=== PATIENT | male | born 2000 | race Hispanic/Latino ===

== ENCOUNTER 2020-06-09 18:42 | Emergency (ER) | payer SELFPAY ==
[2020-06-09 19:03] VITALS: BP 130/104; PULSE 81; RESP 16; TEMP 37.2; O2SAT 100
--- NOTE | 2020-06-09 19:23 | ED.ABDPAIN ---
HPI - Abdominal Pain General Chief Complaint: Abdominal Pain Stated Complaint: abdominal pain Source: other (Elizabeth interpreter deaf) Mode of arrival: ambulatory Limitations: no limitations History of Present Illness HPI narrative: This is a 20-year-old Lithuanian speaking male that presented to urgent care with right lower quadrant pain that he has since Sunday. Patient's friend Elizabeth is interpreting for him at this time. According to patient his pain worsens when he stand upright. Patient last bowel movement was today. The patient denies SOB, CP, palpitation, extremity numbness, lightheadedness, dizziness, constipation, diarrhea, chills, or fever.. Patient is being transferred to [facility] via personal vehicle for further testing accepting physician Dr. Sterling report given to Cl BENTON MD elicited complaint: abdominal pain Pain Consistency: intermittent Location: RLQ Severity: moderate Quality: sharp Radiation: none Migration to: no migration Related Data Home Medications Medication Instructions Recorded Confirmed No Home Medications 06/09/20 06/09/20 Allergies Allergy/AdvReac Type Severity Reaction Status Date / Time No Known Allergies Allergy Verified 06/09/20 18:56 Review of Systems Review of Systems: All systems reviewed & are unremarkable except as noted in HPI and below (10 point system review) [facility] Social History Social History Gender identity (if verbalized by the patient): Male Exam Narrative: Exam Narrative: GENERAL: This is a well-nourished, well-developed patient, in no apparent distress. HEAD: normocephalic, atraumatic. EYES: PERRL. Sclera clear/white. Vision is grossly intact. EARS: External ears normal, auditory canals clear and without drainage, TMs normal without perforation. Hearing grossly intact. NOSE: External nose normal with no obvious nasal discharge, nares without redness, no rhinorrhea. THROAT: Mucous membranes moist, posterior pharynx clear. NECK: Neck supple, non-tender without lymphadenopathy, masses or thyromegaly. CARDIOVASCULAR: Regular rate and rhythm without murmurs, gallops, or rubs. RESPIRATORY: Clear to auscultation. Breath sounds equal bilaterally. No wheezes, rales, or rhonchi. GASTROINTESTINAL: Right lower quadrant tenderness, involuntary guarding right leg once with bowel sounds are active. No hepato-splenomegaly, or palpable masses. rovsing sign negative. positive psoas sign SKIN: warm, intact with no suspicious lesions or rash, good texture and turgor. NEURO: awake, alert, and oriented to person, place and time. There were no obvious focal neurologic abnormalities. Steady gait EXTREMITIES: Normal range of motion. No edema. No calf tenderness. Negative Homans sign bilaterally. BACK: Nontender without deformity or crepitance. No flank tenderness. Course Vital Signs Vital signs: Vital Signs Temperature 99.0 F 06/09/20 19:03 Pulse Rate 81 06/09/20 19:03 Respiratory Rate 16 06/09/20 19:03 Blood Pressure 130/104 H 06/09/20 19:03 Pulse Oximetry 100 06/09/20 19:03 Temperature 99.0 F 06/09/20 19:03 Pulse Rate 81 06/09/20 19:03 Respiratory Rate 16 06/09/20 19:03 Blood Pressure 130/104 H 06/09/20 19:03 Pulse Oximetry 100 06/09/20 19:03 Transfer Transfered to: [facility] Transfer rationale: Rule out appendicitis Accepting physician: Dr. Sterling Transfer comments: Patient refused EMS will transport via personal vehicle Discharge Plan Discharge Clinical Impression: Abdominal pain in male Patient Disposition: Acute Care Hospital Condition: Stable Instructions: Antibiotic Form Prescriptions: No Action No Home Medications RF: 0 Follow-up/Referrals: UNKNOWN,DOCTOR [Primary Care Provider] -
[2020-06-09 19:24] VITALS: BP 130/80; PULSE 78; RESP 16; O2SAT 100
== END 2020-06-09 19:22 | disposition short-term general hospital (02) ==
PROVIDERS: Emergency Provider Nurse Practitioner
DX: R10.31 Right lower quadrant pain (principal)
CPT/HCPCS: 99202; G0463

== ENCOUNTER 2020-06-09 19:47 | Observation (INO) | payer SELFPAY ==
--- NOTE | ~2020-06-09 | CT_ITS ---
EXAMINATION: CT abdomen pelvis w con DATE: 06/09/2020 21:45 INDICATION: Right lower quadrant pain TECHNIQUE: Computed tomography (CT) of the abdomen and pelvis was performed with 100 cc Omnipaque 350 intravenous contrast. The dose-length product was 518.26 mGy-cm. Automated exposure control and iter ative reconstruction technique were employed. COMPARISON: None. FINDINGS: Lung bases are unremarkable. Heart size normal. No significant pleural or pericardial effus ion. No significant vascular abnormality. No lymphadenopathy. Fatty infiltration of the liver. The spleen, pancreas, adrenal glands and kidneys are unremarkable. G allbladder is contracted. Nonobstructive bowel gas pattern. The appendix is thickened with appendicea l wall enhancement and periappendiceal inflammation. There are appendicoliths present also. Findings compatible with acute uncomplicated appendicitis. No abnormal pelvic masses or fluid collections. No free air or free fluid. IMPRESSION: 1. Acute uncomplicated appendicitis. Reviewed, dictated and finalized at location A. ROOM SUPERVISOR
[2020-06-09 19:57] VITALS: BP 138/79; PULSE 99; RESP 16; TEMP 36.7; O2SAT 100
[2020-06-09 20:47] LABS: Basophils Absolute Auto 0.1 K/mm3 (0.0-0.1); Basophils Percent Auto 0.7 % (0.2-1.2); Eosinophils Absolute Auto 0.3 K/mm3 (0-0.3); Eosinophils Percent Auto 2.4 % (0-4.4); Hematocrit 47.6 % (42.0-52.0); Hemoglobin 16.6 g/dL (14.0-18.0); Immature Granulocyte Absolute 0.04 K/mm3 (0.00-0.031); Immature Granulocyte Percent A 0.4 % (0-0.5); Lymphocytes Absolute Auto 1.73 K/mm3 (0.9-3.2); Lymphocytes Percent Auto 15.7 % (18.3-44.2); Mean Corpuscular HGB Conc 34.9 g/dl (32-36); Mean Corpuscular Hemoglobin 30.9 pg (26-34); Mean Corpuscular Volume 88.5 fl (80-100); Neutrophils Absolute Auto 7.9 K/mm3 (1.3-6.7); Neutrophils Percent Auto 71.8 % (45.5-73.1); Platelet Count Result 240 k/mm3 (150-375); Red Blood Count 5.38 M/mm3 (4.6-6.20); White Blood Count 11.1 K/mm3 (4.5-10.0)
[2020-06-09 20:59] LABS: Alanine Aminotransferase 140 U/L (4-50); Albumin Level 4.9 g/dL (3.5-5.1); Alkaline Phosphatase 92 U/L (38-126); Anion Gap 8 mmol/L (8-16); Aspartate Amino Transferase 58 U/L (17-59); Bilirubin,Total 0.9 mg/dL (0.2-1.3); Blood Urea Nitrogen 11 mg/dL (9-20); Calcium 9.4 mg/dL (8.4-10.2); Carbon Dioxide 30 mmol/L (22-30); Chloride 100 mmol/L (98-107); Estimated CRCL calculation 112 ml/min; Estimated Glomerular Filt Rate > 60; Glucose 102 mg/dL (75-110); Lipase 66 U/L (23-300); Potassium 3.7 mmol/L (3.4-5.0); Sodium 138 mmol/L (137-145)
--- NOTE | 2020-06-09 21:17 | ED.ABDPAIN ---
HPI - Abdominal Pain General Chief Complaint: Abdominal Pain Stated Complaint: abd pain Time Seen by Provider: 06/09/20 21:06 Source: patient Mode of arrival: ambulatory Limitations: no limitations History of Present Illness HPI narrative: Patient is a 18-year-old male complaining right lower quadrant pain, sharp, 6 out of 10, nonradiating started approximately 2 days ago. Patient denies any chest pain, shortness of breath, nausea, vomiting, diarrhea, fever or chills. Patient denies any urinary symptoms. Related Data Home Medications Medication Instructions Recorded Confirmed No Home Medications 06/09/20 06/09/20 Allergies Allergy/AdvReac Type Severity Reaction Status Date / Time No Known Allergies Allergy Verified 06/09/20 18:56 Review of Systems Review of Systems: All systems reviewed & are unremarkable except as noted in HPI and below Constitutional: Constitutional: Denies body ache(s), Denies chills, Denies excessive sweating, Denies fatigue, Denies fever(s), Denies headache(s), Denies lethargy, Denies malaise, Denies weakness and Denies weight loss Eyes: Eyes: Denies blurry vision, Denies change in vision and Denies loss of vision ENT: Denies dizziness, Denies ear discharge, Denies headache(s), Denies lip swelling, Denies epistaxis, Denies nasal congestion, Denies neck pain, Denies throat swelling and Denies tongue swelling Cardiovascular: Cardiovascular: Denies chest pain, Denies chest pain at rest, Denies chest pain with activity, Denies diaphoresis, Denies rapid heart rate, Denies edema, Denies irregular heart rhythm, Denies lightheadedness, Denies palpitations, Denies dyspnea and Denies dyspnea on exertion Respiratory: Respiratory: Denies chest congestion, Denies cough, Denies hemoptysis, Denies dyspnea and Denies dyspnea on exertion Gastrointestinal: Gastrointestinal: Denies melena, Denies hematochezia, Denies diarrhea, Denies nausea, Denies vomiting and Denies hematemesis Musculoskeletal: Musculoskeletal: Denies abnormal gait, Denies deformity, Denies joint swelling, Denies limited range of motion, Denies neck pain and Denies numbness Neurologic: Denies Abnormal speech present, Denies abnormal gait, Denies confusion, Denies dizziness, Denies headache(s), Denies focal weakness, Denies loss of vision, Denies numbness, Denies Other visual disturbances, Denies Sensory deficit (Neuro) and Denies weakness Psychiatric: Psychiatric: Denies confusion, Denies depression, Denies auditory hallucinations, Denies homicidal ideation and Denies suicidal ideation Endocrine: Endocrine: Denies cold intolerance, Denies excessive sweating, Denies fatigue, Denies heat intolerance and Denies palpitations Hematologic/Lymphatic: Hematologic/Lymphatic: Denies easy bleeding and Denies easy bruising Allergic/Immunologic: Allergic/Immunologic: Denies lip swelling, Denies throat swelling and Denies tongue swelling [facility] Social History Social History Gender identity (if verbalized by the patient): Male Exam Const: General: cooperative, healthy appearing, comfortable, no acute distress, well developed, alert and awake; No confusion Orientation/consciousness: oriented to person, oriented to place, oriented to time, patient oriented x3 and No confusion Limitations: no limitations HENMT: Head: normal to inspection, normocephalic and atraumatic Ears: hearing grossly normal bilaterally, TM normal on the right and TM normal on the left General nose exam: Normal external nose present, Normal nares present and No nasal discharge present Face and sinus: normal facial exam Mouth: Yes Normal oral and palatal mucosa present, Yes lip normal, Yes tongue normal and Yes oropharynx normal Throat: posterior oropharynx normal, tonsils normal and uvula midline Eyes: General: appearance normal, both eyes and all related structures Pupils: Equal, round and reactive pupils present EOM: EOMs intac
[2020-06-09] MEDS: SODIUM CHLORIDE 0.9% IV 1,000 ML 999 ML IV CONT (21:30)
[2020-06-09 21:31] LABS: Add Urine Microscopic? YES; Amorphous Sediment Urine Few; Appearance Urine Cloudy (Clear); Bacteria Urine Trace /hpf; Bilirubin Urine Negative (Negative); Blood Urine Negative (Negative); Color Urine Yellow (Yellow); Glucose Urine UA Negative (Negative); Ketones Urine Negative (Negative); Leukocyte Esterase Ur Negative LEU/UL (Negative); Nitrate Urine Negative (Negative); Protein Urine 2+ mg/dL (Negative); Specific Grav Ur 1.025 (1.001-1.035)
[2020-06-09 22:47] VITALS: BP 134/84; PULSE 74; RESP 18; O2SAT 99
[2020-06-09] MEDS: ONDANSETRON INJ 4 MG/2 ML VIAL IV PUSH (22:59)
[2020-06-09] MEDS: HYDROmorphone HCL INJ (*CRX) 1 MG/ML SYR 0.5 MG IV PUSH (22:59)
[2020-06-09] MEDS: LACTATED RINGERS 1,000 ML 125 ML IV CONT (23:00)
--- NOTE | 2020-06-09 23:54 | ADMGEN ---
This patient, Fredi Brooks, was admitted to 2 Medical Room 241-. Patient/family oriented to hospital policies and general routines including ID bracelet, bed and alarms, visiting hours, pain management, procedures, bathroom and other care routines, personal items, smoking policy, room service/diet, and visiting hours. Information on how to activate the Rapid Response Team has been discussed. Patient/Family are encouraged to report perceived risks to care and to ask questions if they do not understand what they are told or what they should do.
[2020-06-10] VITALS (14 sets, daily range): BP systolic 113–135; BP diastolic 60–82; PULSE 62–89; RESP 14–24; TEMP 35.9–37.7; O2SAT 96–100; BMI 33.2
[2020-06-10] MEDS: HYDROmorphone HCL INJ (*CRX) 1 MG/ML SYR 0.5 MG IV PUSH (04:29)
[2020-06-10 06:09] LABS: Basophils Absolute Auto 0.1 K/mm3 (0.0-0.1); Basophils Percent Auto 0.6 % (0.2-1.2); Eosinophils Absolute Auto 0.2 K/mm3 (0-0.3); Eosinophils Percent Auto 2.3 % (0-4.4); Hematocrit 41.2 % (42.0-52.0); Hemoglobin 14.1 g/dL (14.0-18.0); Immature Granulocyte Absolute 0.03 K/mm3 (0.00-0.031); Immature Granulocyte Percent A 0.3 % (0-0.5); Lymphocytes Absolute Auto 1.76 K/mm3 (0.9-3.2); Lymphocytes Percent Auto 17.8 % (18.3-44.2); Mean Corpuscular HGB Conc 34.2 g/dl (32-36); Mean Corpuscular Hemoglobin 30.9 pg (26-34); Mean Corpuscular Volume 90.2 fl (80-100); Mean Platelet Volume 11.3 fl (7.4-10.4); Monocytes Percent Auto 10.3 % (2.6-8.5); Neutrophils Absolute Auto 6.8 K/mm3 (1.3-6.7); Neutrophils Percent Auto 68.7 % (45.5-73.1); Platelet Count Result 211 k/mm3 (150-375); Red Blood Count 4.57 M/mm3 (4.6-6.20); Red Cell Distribution Width 12.7 % (11.5-14.5); White Blood Count 9.9 K/mm3 (4.5-10.0)
--- NOTE | 2020-06-10 07:58 | WPDANESEPPF ---
Anes - Initial Pre Proc Eval Procedure: Operation Date: 06/10/20 10:30 Proposed Procedures p Laparoscopic Appendectomy - Jimi Maharaj MD Date/Time: 06/10/20 07:58 Surgeon: Jimi Maharaj MD Pre Op Diagnosis: Acute Appendicitis Patient Data Age: 20 Gender: M Height: 1.52 m Weight: 77.1 kg Last Vital Signs Temp 36.3 C L 06/10/20 04:48 Pulse 62 06/10/20 04:48 Resp 20 06/10/20 04:48 BP 113/60 06/10/20 04:48 Pulse Ox 100 06/10/20 04:48 Allergies Allergy/AdvReac Type Severity Reaction Status Date / Time No Known Allergies Allergy Verified 06/09/20 18:56 Home Medications Medication Instructions Recorded Confirmed Type No Home Medications 06/09/20 06/09/20 History Laboratory Tests 06/09/20 06/09/20 06/09/20 20:40 20:40 21:13 WBC 11.1 K/mm3 H K/mm3 (4.5-10.0) RBC 5.38 M/mm3 M/mm3 (4.6-6.20) Hgb 16.6 g/dL g/dL (14.0-18.0) Hct 47.6 % % (42.0-52.0) MCV 88.5 fl fl (80-100) MCH 30.9 pg pg (26-34) MCHC 34.9 g/dl g/dl (32-36) RDW 13.0 % % (11.5-14.5) Plt Count 240 k/mm3 k/mm3 (150-375) MPV 11.0 fl H fl (7.4-10.4) Immature Gran % (Auto) 0.4 % % (0-0.5) Neut % (Auto) 71.8 % % (45.5-73.1) Lymph % (Auto) 15.7 % L % (18.3-44.2) Mercer % (Auto) 9.0 % H % (2.6-8.5) Eos % (Auto) 2.4 % % (0-4.4) Baso % (Auto) 0.7 % % (0.2-1.2) Lymph # (Auto) 1.73 K/mm3 K/mm3 (0.9-3.2) Mercer # (Auto) 1.0 K/mm3 H K/mm3 (0.1-0.6) Eos # (Auto) 0.3 K/mm3 K/mm3 (0-0.3) Baso # (Auto) 0.1 K/mm3 K/mm3 (0.0-0.1) Abs Immat Gran (auto) 0.04 K/mm3 H K/mm3 (0.00-0.031) Absolute Neuts (auto) 7.9 K/mm3 H K/mm3 (1.3-6.7) Absolute Nucleated RBC 0.0 K/mm3 K/mm3 (0.0-0.012) Nucleated RBC % 0.0 % % (0.0-0.2) Sodium 138 mmol/L mmol/L (137-145) Potassium 3.7 mmol/L mmol/L (3.4-5.0) Chloride 100 mmol/L mmol/L (98-107) Carbon Dioxide 30 mmol/L mmol/L (22-30) Anion Gap 8 mmol/L mmol/L (8-16) BUN 11 mg/dL mg/dL (9-20) Creatinine 0.80 mg/dL mg/dL (0.7-1.3) Estim Creat Clear Calc 112 ml/min ml/min Estimated GFR > 60 (59 - ) Glucose 102 mg/dL mg/dL (75-110) Calcium 9.4 mg/dL mg/dL (8.4-10.2) Total Bilirubin 0.9 mg/dL mg/dL (0.2-1.3) AST 58 U/L U/L (17-59) ALT 140 U/L H U/L (4-50) Alkaline Phosphatase 92 U/L U/L (38-126) Total Protein 9.0 g/dL H g/dL (6.3-8.2) Albumin 4.9 g/dL g/dL (3.5-5.1) Lipase 66 U/L U/L (23-300) Urine Color Yellow (Yellow) Urine Appearance Cloudy H (Clear) Urine pH 8.0 (5.0-9.0) Ur Specific Vader 1.025 (1.001-1.035) Urine Protein 2+ mg/dL H mg/dL (Negative) Urine Glucose (UA) Negative mg/dL mg/dL (Negative) Urine Ketones Negative mg/dL mg/dL (Negative) Ur Blood (Man) Negative (Negative) Urine Nitrate Negative (Negative) Urine Bilirubin Negative (Negative) Urine Urobilinogen 4.0 mg/dL H mg/dL (<2.0) Leukocyte Esterase Rfl Negative DEJA/UL DEJA/UL (Negative) Urine RBC 3-5 /hpf H /hpf (0-2) Urine WBC 4-6 /hpf H /hpf Amorphous Sediment Few H (None) Urine Bacteria Trace /hpf /hpf 06/10/20 05:10 WBC 9.9 K/mm3 K/mm3 (4.5-10.0) RBC 4.57 M/mm3 L M/mm3 (4.6-6.20) Hgb 14.1 g/dL g/dL (14.0-18.0) Hct 41.2 % L % (42.0-52.0) MCV 90.2 fl fl (80-100) MCH 30.9 pg pg (26-34) MCHC 34.2 g/dl g/dl (32-36) RDW 12.7 % % (11.5-14.5) Plt Count 211 k/mm3 k/mm3 (150-375) MPV 11.3 fl H fl (
[2020-06-10] MEDS: LACTATED RINGERS 1,000 ML 125 ML IV CONT (08:00)
--- NOTE | 2020-06-10 09:14 | WPDHPUPDATE1 ---
History and Physical Update Update Date/Time: 06/10/20 09:14 History and Physical has been reviewed, including an updated exam of the patient. There are NO changes in the patient's condition. Risks, benefits, and alternatives have been discussed and questions answered. Patient agrees to proceed with procedure.
--- NOTE | 2020-06-10 09:14 | PM.IMHP ---
H&P: HPI History of Present Illness Date/Time: 06/10/20 09:14 Chief Complaint: abdominal pain with loss of appetite Narrative: Fredi Brooks is a 20 year old [place] male patient thatayan is a 18-year-old male complaining right lower quadrant pain, sharp, 6 out of 10, nonradiating started approximately 2 days ago. Patient denies any chest pain, shortness of breath, nausea, vomiting, diarrhea, fever or chills. Patient denies any urinary symptoms. patient has had no fever but has had some loss of appetite. Workup in the emergency room last evening revealed a acute uncomplicated appendicitis with some appendicoliths. There is surrounding edema in the fat to suggest current inflammation. Patient was given a dose of Zosyn in the ER and admitted and kept NPO overnight to consider surgical intervention versus antibiotic treatment. Review of Systems Constitutional: Constitutional: Reports as per HPI and Denies headache(s) Eyes: Eyes: Denies loss of vision and Denies eye pain ENT: Reports Normal hearing present, Denies change in voice, Denies dizziness and Denies headache(s) Cardiovascular: Cardiovascular: Denies chest pain and Denies dyspnea Respiratory: Respiratory: Denies dyspnea and Denies wheezing Gastrointestinal: Gastrointestinal: Reports abdominal pain Musculoskeletal: Musculoskeletal: Denies back pain and Denies arthralgias Neurologic: Reports Normal hearing present, Denies dizziness, Denies headache(s), Denies loss of vision and Denies memory loss Psychiatric: Psychiatric: Denies memory loss and Denies panic attacks Endocrine: Endocrine: Reports no additional endocrine complaints Hematologic/Lymphatic: Hematologic/Lymphatic: Reports no additional hematologic/lymphatic complaints Allergic/Immunologic: Allergic/Immunologic: Denies wheezing PMFSH Past Medical History Medical History Obesity Smoker Family History Family History Other Unknown family medical history Social History Social History Smoking status: Current every day smoker Tobacco type: cigarettes Alcohol intake: current Drinks per week: 12 Substance use: current Substance use type: marijuana Gender identity (if verbalized by the patient): Male Spiritual care concerns: No Comments Denies any allergies Denies any current routine medications or medical supplements. Meds Home Medications and Allergies Home Medications Medication Instructions Recorded Confirmed Type No Home Medications 06/09/20 06/09/20 History Allergies Allergy/AdvReac Type Severity Reaction Status Date / Time No Known Allergies Allergy Verified 06/09/20 18:56 Vital Signs Vital Signs - 24 hr 06/09/20 19:57 06/09/20 22:47 06/10/20 00:07 Temperature 36.7 C 36.2 C L Pulse Rate 99 74 70 Respiratory Rate 16 18 18 Blood Pressure 138/79 134/84 117/67 Pulse Oximetry 100 99 99 06/10/20 04:48 Temperature 36.3 C L Pulse Rate 62 Respiratory Rate 20 Blood Pressure 113/60 Pulse Oximetry 100 Exam Const: General: cooperative, no acute distress, well developed, alert and awake Nutritional Appearance: well nourished Orientation/consciousness: patient oriented x3 Limitations: no limitations HENMT: Head: normal to inspection, normocephalic and atraumatic Ears: hearing grossly normal bilaterally General nose exam: Normal external nose present Face and sinus: normal facial exam Mouth: Yes Normal oral and palatal mucosa present, Yes tongue normal and Yes moist mucous membranes Eyes: General: appearance normal, both eyes and all related structures Pupils: Equal, round and reactive pupils present EOM: EOMs intact bilaterally Neck: Neck: normal visual inspection, no lymphadenopathy, trachea midline and supple Lymphatic: no lymphadenopathy noted Chest: Chest palpation & inspection: normal inspection of the chest Res
[2020-06-10] MEDS: LACTATED RINGERS 1,000 ML 30 ML IV CONT ×2 (09:45→11:39)
--- NOTE | 2020-06-10 09:45 | PC.NURSE ---
To OR per patricia, IV to [facility]. Report given to Gokul SHERMAN.
[2020-06-10] MEDS: BUPIVACAINE HCL 0.5% PF 30 ML VIAL INFILTRATE (10:44)
--- NOTE | 2020-06-10 11:46 | PM.PROC ---
Procedure Note - Detailed Date of procedure: 06/10/20 Pre-op diagnosis: Acute Appendicitis Acute uncomplicated appendicitis without perforation and without peritonitis Post-op diagnosis: same Procedure performed: Laparoscopic appendectomy Description of procedure: The patient was seen again in the Holding Room. The risks, benefits, complications, treatment options, and expected outcomes were discussed with the patient and/or family. The possibilities of reaction to medication, pulmonary aspiration, perforation of viscus, bleeding, recurrent infection, finding a normal appendix, the need for additional procedures, failure to diagnose a condition, and creating a complication requiring transfusion or operation were discussed. There was concurrence with the proposed plan and informed consent was obtained. The site of surgery was properly noted/marked. The patient was taken to Operating Room, and a time out was preformed which identified this as the proper patient, and the procedure verified as laparoscopic appendectomy, possible open. The patient was placed in the supine position and general anesthesia was induced, along with placement of orogastric tube, SCD hose, and a Ferro catheter. The abdomen was prepped and draped in a sterile fashion. A 5 mm umbilical incision was made and the peritoneal cavity was accessed using the Veress needle technique. Once the abdomen was insufflated to 14 mmHg pressure a 5 mm XL trocar over the 0? 5 mm scope was carefully twisted into the abdomen via the umbilicus. The pneumoperitoneum was then established to steady pressure of 14 mm Hg. A 12 mm laparoscopic port was placed through a transverse suprapubic incision. An additional 5 mm cannula was then placed in the left lower quadrant of the abdomen at a level half way between the umbilicus and pubic symphysis under direct vision. A careful evaluation of the entire abdomen was carried out. The patient was placed in Trendelenburg and left lateral decubitus position. The small intestines were retracted in the cephalad and left lateral direction away from the pelvis and right lower quadrant. The patient was found to have an enlarged and inflamed appendix that was extending [into the right side of the pelvis. There was no evidence of perforation. The appendix was carefully dissected. After careful dissection the mesoappendix was noted to be short and the appendix base was not wide. Therefore, I placed the blue load on the 45 mm Endo-CHRISTINE stapler and placed this across the base of the appendix and the mesoappendix right at the base of the appendix where it joined the cecum. After allowing it to be closed for 15 seconds, I fired it, left it for 15 more seconds then removed it. Upon inspection this showed just about 5 mm of tissue that was not divided. Therefore, a white load was placed on the same stapler it was pushed back put back in the abdomen in this was placed across the rest of the tissue which I believe was a portion of the mesoappendix. This was fired and it then divided the appendix completely. Minimal appendiceal stump was left in place. There was no evidence of bleeding, leakage, or complication after division of the appendix at its junction with the cecum. I did place two unfolded 4x4s in the abdomen and carefully blotted up any blood that had drained when we made a small hole in the appendiceal artery as I was dissecting the appendix. In general the 1st staple line sealed any bleeding from the appendiceal artery. The appendix was then placed in an endobag which had been brought through the 12 mm suprapubic port site. The appendix and the bag were then extracted through this larger port site in the suprapubic position. Following this a the 4x4s were removed from the abdomen after blotting the area of the stump of the appendix. There was no further bleeding identified in all the blood clot in the area was removed with the 4x4s. I then pulled some omentum down over the area of the st
[2020-06-10] MEDS: fentaNYL CITRATE INJ (*CRX) 100 MCG/2 ML VIAL 25 MCG IV PUSH ×2 (12:08→12:48)
--- NOTE | 2020-06-10 13:10 | PC.NURSE ---
Returned from OR per stretcher. Report received from Gokul.
[2020-06-10] MEDS: HYDROcodone/acetaminophen (*CRX) 5-325 MG TABLET 1 TAB PO (15:04)
[2020-06-11 02:45] VITALS: BP 124/70; PULSE 90; RESP 21; TEMP 36.7; O2SAT 100
[2020-06-11 05:40] LABS: Hematocrit 38.5 % (42.0-52.0); Hemoglobin 13.5 g/dL (14.0-18.0); Mean Corpuscular HGB Conc 35.1 g/dl (32-36); Mean Corpuscular Hemoglobin 30.1 pg (26-34); Mean Corpuscular Volume 85.7 fl (80-100); Mean Platelet Volume 11.3 fl (7.4-10.4); Platelet Count Result 248 k/mm3 (150-375); Red Blood Count 4.49 M/mm3 (4.6-6.20); White Blood Count 8.9 K/mm3 (4.5-10.0)
[2020-06-11 06:01] LABS: Anion Gap 8 mmol/L (8-16); Blood Urea Nitrogen 7 mg/dL (9-20); Calcium 8.9 mg/dL (8.4-10.2); Carbon Dioxide 29 mmol/L (22-30); Chloride 99 mmol/L (98-107); Estimated CRCL calculation 123 ml/min; Estimated Glomerular Filt Rate > 60; Glucose 102 mg/dL (75-110); Potassium 3.6 mmol/L (3.4-5.0); Sodium 136 mmol/L (137-145)
[2020-06-11 06:45] VITALS: BP 127/75; PULSE 74; RESP 21; TEMP 36.8; O2SAT 100
--- NOTE | 2020-06-11 09:41 | PM.DS ---
DS: Admitting Diagnosis Admitting Diagnosis Admitting Diagnosis: Acute uncomplicated appendicitis DS: Discharge Diagnosis Discharge Diagnosis (1) Acute appendicitis: Onset Date: ~06/2020 Qualifiers: Acute appendicitis type: unspecified acute appendicitis type Qualified Code(s): K35.80 - Unspecified acute appendicitis Code(s): K35.80 - Unspecified acute appendicitis Status: Acute Assessment and Plan: This was the main reason for his admission. He will follow up in the office in 2 weeks. He will gradually increase his diet beginning with soft foods (2) Smoker: Onset Date: Unknown Code(s): F17.200 - Nicotine dependence, unspecified, uncomplicated Status: Acute Assessment and Plan: Encouraged to stop smoking if possible (3) Obesity: Onset Date: Unknown Code(s): E66.9 - Obesity, unspecified Status: Acute Assessment and Plan: Recommended low-fat diet and increased exercise DS: Summary Hospital Course Reason for hospitalization: Acute uncomplicated appendicitis Hospital Course: Patient had a uneventful hospital course. After admission he had an elective but urgent appendectomy performed laparoscopically. There was no signs of perforation. He received a dose of antibiotics just prior to incision and no further antibiotics were needed. White count on the day following surgery was normal. Patient will gradually increase activity at home. He will stay off work for 2 weeks. He can call the office if there is any problems. He will follow-up with me in the office in 2 weeks. Status at Discharge Cognitive/behavioral status at discharge: Returned to normal Functional status at discharge: independent ambulation Overall status at discharge: patient is back to baseline Time Spent with Patient Time attestation: Total time spent providing and/or coordinating discharge services: Time spent: Less than 30 minutes Exam Const: General: cooperative, no acute distress, alert and awake Orientation/consciousness: patient oriented x3 HENMT: Mouth: Yes moist mucous membranes Neck: Neck: normal visual inspection Chest: Chest palpation & inspection: normal inspection of the chest Resp: Effort & Inspection: normal respiratory effort Auscultation: clear to auscultation bilaterally Cardio: Jugular venous distension: no JVD Rate: regular rate Rhythm: regular rhythm GI: Inspection: normal to inspection and incision ( 3 incisions with some surgical glue and w/o signs of erythema or infection) GI Palp: No abdominal tenderness Auscultation: normal bowel sounds Rectal Exam: deferred Neuro: General: patient oriented x3 and moves all extremities Speech: normal speech Extrem: General: normal exam except as noted Psych: Mental Status: mental status grossly normal Speech and movement: Normal speech and movement present Affect: normal affect Thought content: Yes Normal thought content present DS: Data Data Completed and Pending Pending studies at discharge: Pending at discharge 06/10/20 10:49 Surgical [PTH] Routine Labs on day of discharge: Labs from last 24 hours 06/11/20 06/11/20 04:51 04:51 WBC 8.9 RBC 4.49 L Hgb 13.5 L Hct 38.5 L MCV 85.7 MCH 30.1 MCHC 35.1 RDW 12.0 Plt Count 248 MPV 11.3 H Sodium 136 L Potassium 3.6 Chloride 99 Carbon Dioxide 29 Anion Gap 8 BUN 7 L Creatinine 0.70 Estim Creat Clear Calc 123 Estimated GFR > 60 Glucose 102 Calcium 8.9 Discharge Plan Discharge Attending physician on discharge: Jimi Maharaj Consulting providers: Maxime Jordan Discharging Clinician: Jimi Maharaj Anticipated Discharge Date/Time: 06/11/20 10:15 Patient Disposition: Home, Self-Care Activity: september shower Diet: other - see discharge instructions Wound Care Instructions: follow printed instructions Discharge Instructions: DISCHARGE INSTRUCTION SHE
--- NOTE | 2020-06-11 09:47 | PM.PNGS ---
Subjective Subjective Date/Time Seen: 06/11/20 09: Objective Data Vital Signs Vital Signs: Vital Signs - 24 hr 06/10/20 10:00 06/10/20 11:39 06/10/20 12:05 Temperature 37.7 C H 35.9 C L Pulse Rate 74 76 70 Respiratory Rate 16 14 20 Blood Pressure 119/63 129/82 125/70 Pulse Oximetry 98 100 100 06/10/20 12:20 06/10/20 12:35 06/10/20 12:50 Temperature Pulse Rate 89 80 79 Respiratory Rate 23 H 24 H 22 H Blood Pressure 123/79 125/73 116/74 Pulse Oximetry 97 97 97 06/10/20 13:00 06/10/20 13:15 06/10/20 13:45 Temperature 36.2 C L 37.0 C 36.9 C Pulse Rate 75 80 80 Respiratory Rate 18 20 20 Blood Pressure 135/73 130/79 130/79 Pulse Oximetry 96 96 96 06/10/20 14:45 06/10/20 20:00 06/10/20 22:45 Temperature 36.9 C 36.5 C Pulse Rate 77 77 74 Respiratory Rate 18 18 21 H Blood Pressure 129/71 116/75 Pulse Oximetry 97 97 100 06/11/20 02:45 06/11/20 06:45 Temperature 36.7 C 36.8 C Pulse Rate 90 74 Respiratory Rate 21 H 21 H Blood Pressure 124/70 127/75 Pulse Oximetry 100 100 Intake/Output Intake/Output: Intake & Output 06/08/20 06/09/20 06/10/20 06/11/20 23:59 23:59 23:59 23:59 Intake Total 2049 1700 1150 Output Total 1400 900 Balance 0 300 250 Meds/Results Medications: Active Medications Generic Name Dose Route Start Last Admin Trade Name Freq PRN Reason Stop Dose Admin Acetaminophen 500 mg 06/10/20 13:44 Acetaminophen 500 Mg Tablet PO Q6H PRN Mild Pain (1-3) or Fever Hydrocodone Bitart/Acetaminophen 1 tab 06/10/20 13:44 06/10/20 15:04 Hydrocodone/Acetaminophen (*Crx) 5-325 Mg Tablet PO 1 tab Q4H PRN Administration Pain Rated 4-6 Hydrocodone Bitart/Acetaminophen 1 tab 06/10/20 13:44 Hydrocodone/Acetaminophen (*Crx) 7.5-325 Mg Tablet PO Q4H PRN Pain Rated 7-10 Diphenhydramine HCl 25 mg 06/10/20 13:44 Diphenhydramine Hcl Inj 50 Mg/Ml Vial IV PUSH Q6H PRN Itching Morphine Sulfate 2 mg 06/10/20 13:44 Morphine Sulfate (*Crx) 2 Mg/Ml Inj IV PUSH Q4H PRN Pain Rated 4-6 Morphine Sulfate 4 mg 06/10/20 13:44 Morphine Sulfate (*Crx) 4 Mg/Ml Inj IV PUSH Q4H PRN Pain Rated 7-10 Naloxone HCl 0.1 mg 06/10/20 13:46 Naloxone Hcl 0.4 Mg/Ml Vial IV PUSH Q2M PRN Opiate Reversal Senna/Docusate Sodium 2 tab 06/10/20 21:00 06/11/20 05:55 Senna/Docusate Sodium Tablet PO Not Given HS [facility] Radiology Results: ITS Impressions Abdomen/Pelvis CT 06/09/20 21:48 IMPRESSION: 1. Acute uncomplicated appendicitis. Labs Labs: Laboratory Results - last 24 hr 06/11/20 06/11/20 04:51 04:51 WBC 8.9 RBC 4.49 L Hgb 13.5 L Hct 38.5 L MCV 85.7 MCH 30.1 MCHC 35.1 RDW 12.0 Plt Count 248 MPV 11.3 H Sodium 136 L Potassium 3.6 Chloride 99 Carbon Dioxide 29 Anion Gap 8 BUN 7 L Creatinine 0.70 Estim Creat Clear Calc 123 Estimated GFR > 60 Glucose 102 Calcium 8.9
[2020-06-11 10:45] VITALS: BP 135/73; PULSE 75; RESP 18; TEMP 36.2; O2SAT 98
--- NOTE | 2020-06-11 13:21 | PC.NURSE ---
Used the production line mechanic session number [id number] for discharge instructions. The patient's questions were answered and is ready for discharge.
== END 2020-06-11 13:22 | disposition home or self-care (01) ==
LOC: ANHED 22:32 → ANH2MED 06-10 00:14
PROVIDERS: Emergency Medicine; Admitting Provider Surgery; Emergency Provider Emergency Medicine; PCP Pediatrics; Visit Provider Surgery
PROC: 0DTJ4ZZ Resection of Appendix, Percutaneous Endoscopic Approach (ICD-10-PCS; CPT 44970; principal; 2020-06-10 10:30)
DX: K35.30 Acute appendicitis with localized peritonitis, without perforation or gangrene (principal); R10.31 Right lower quadrant pain; F17.210 Nicotine dependence, cigarettes, uncomplicated; F12.90 Cannabis use, unspecified, uncomplicated; E66.9 Obesity, unspecified; Z68.33 Body mass index [BMI] 33.0-33.9, adult
CPT/HCPCS: 44970; 36415; 74177; 80048; 80053; 81001; 83690; 85025; 85027; 88304; 96361; 96365; 96374; 96375; 99285; A9270; G0378; G0379; J0330; J1100; J1170; J2250; J2405; J2543; J2704; J2710; J3010; J7030; J7120; Q9967